=== PATIENT | male | born 1960 | race Caucasian/White ===

== ENCOUNTER → 2024-07-20 | Outpatient (CLI) | payer OTHER ==
--- NOTE | 2024-07-20 17:41 | US ---
EXAMINATION TYPE: US groin LT DATE OF EXAM: 07/20/2024 COMPARISON: NONE CLINICAL INDICATION: Male, 64 years old with history of K40.90 UNIL INGUINAL HERNIA; Patient has been doing a lot of heavy lifting. Patient has felt a bulge in LLQ/left medial groin area x 6 weeks. TECHNIQUE: Scanned LLQ/left medial groin. FINDINGS/IMPRESSION: Possible defect within the left groin/left lower quadrant wall with movement upo n Valsalva maneuver. Area measures 2.0 x 1.1 cm and is medial to the iliac vessels. Raises concern fo r possible inguinal hernia. Appears to contain fat with bowel not excluded. Recommend further evaluat ion with CT abdomen and pelvis with IV contrast. [facility], , 07/20/2024 5:38 PM
== END | disposition home or self-care (01) ==
LOC: RADUSWWP 06:49
PROVIDERS: ATTEND Family Medicine
DX: K40.90 Unilateral inguinal hernia, without obstruction or gangrene, not specified as recurrent (principal)

== ENCOUNTER → 2024-10-11 | Outpatient (CLI) | payer OTHER ==
[2024-10-11 10:52] LABS: Basophils # (A) 0.03 X 10*3/uL (0.00-0.10); Basophils % (A) 0.5 %; Eosinophils % (A) 1.6 %; HCT 49.3 % (39.6-50.0); HGB 15.6 g/dL (13.0-17.0); Lymphocytes # (A) 1.99 X 10*3/uL (0.90-5.00); Lymphocytes % (A) 32.3 %; MCH 29.4 pg (27.0-32.0); MCHC 31.6 g/dL (32.0-37.0); MCV 92.8 FL (80.0-97.0); Mean Platelet Volume 9.4 FL (9.5-12.2); Monocytes # (A) 0.41 X 10*3/uL (0.20-1.00); Monocytes % (A) 6.7 %; NRBC Per 100 WBC 0 X 10*3/uL (0.00-0.01); Neutrophils # (A) 3.61 X 10*3/uL (1.80-7.70); Neutrophils % (A) 58.6 %; Platelet Count 242 X 10*3/uL (140-440); RBC 5.31 X 10*6/uL (4.40-5.60); RDW 12.5 % (11.5-14.5); WBC 6.16 X 10*3/uL (4.50-10.00)
== END | disposition home or self-care (01) ==
LOC: LABWHC1 07:46
PROVIDERS: ATTEND Surgery
DX: Z01.818 Encounter for other preprocedural examination (principal)
CPT/HCPCS: 36415; 85025; 86850; 86900; 86901; 93005

== ENCOUNTER 2024-10-18 07:17 | Day surgery (SDC) | payer OTHER ==
[~2024-10-18 07:17] MED LIST: HYDROmorphone 0.5 MG/0.5 ML SYRINGE IVP PRN; LACTATED RINGERS 1,000 ML IV SCH; LIDOCAINE 1% (10MG/ML) FOR IV START INTRADERMA PRN; MIDAZOLAM 2 MG/2 ML VIAL IV PRN; fentaNYL (PF) 50 MCG/ML 2 ML AMP IVP PRN
--- NOTE | 2024-10-18 07:31 | P.GSHP ---
History of Present Illness H&P Date: 10/18/24 Chief Complaint: Left inguinal hernia 64-year-old male seen in the office in July. Patient with complaints of pain and bulge left groin. No nausea or vomiting. No change in bowel habits. Patient previous smoker. Patient has lost 90 pounds in the last year or so inte ntionally. Past Medical History Past Medical History: Asthma, COPD, GERD/Reflux, Sleep Apnea/CPAP/BIPAP Additional Past Medical History / Comment(s): hx. reflux prior to using CPAP, Lt. inguinal hernia, intentional wt. loss 90 lbs in past year, uses CPAP History of Any Multi-Drug Resistant Organisms: None Reported Past Surgical History: Back Surgery Additional Past Surgical History / Comment(s): laminectomy 1982, Rt. MICHELLE 2011, colonoscopy Past Anesthesia/Blood Transfusion Reactions: No Reported Reaction Smoking Status: Former smoker - Past Family History Brother(s) Additional Family Medical History / Comment(s): irregular heart rhythm Medications and Allergies Home Medications Medication Instructions Recorded Confirmed Type Albuterol Inhaler [Ventolin Hfa 1 - 2 inh INHALATION Q6H PRN 10/13/24 10/13/24 History Inhaler] Albuterol Nebulized [Ventolin 1 dose INHALATION Q6H PRN 10/13/24 10/13/24 History Nebulized] Cholecalciferol [Vitamin D3 (10 10 mcg PO DAILY 10/13/24 10/13/24 History Mcg = 400 Iu)] Docusate [Colace] 100 mg PO BID PRN 10/13/24 10/13/24 History Magnesium Citrate 250 mg PO DAILY 10/13/24 10/13/24 History Allergies Allergy/AdvReac Type Severity Reaction Status Date / Time adhesive AdvReac contact Verified 10/13/24 12:19 dermatitis Surgical - Exam Physical exam: General: Well-developed, well-nourished HEENT: Normocephalic, sclerae nonicteric Abdomen: Nontender, nondistended, moderate sized reducible left inguinal hernia Extremities: No edema Neuro: Alert and oriented Assessment and Plan (1) Left inguinal hernia Narrative/Plan: Will proceed with laparoscopic da Steven assisted repair left inguinal hernia with mesh, possible open, possible bilateral. Risks of bleeding, infection, recurrence, bladder and bowel injury, numbness, nerve injury, conversion to an open procedure were discussed with the patient. The patient understands and wishes to proceed. Current Visit: Yes Status: Acute Code(s): K40.90 - UNIL INGUINAL HERNIA, W/O OBST OR GANGR, NOT SPCF RECUR SNOMED Code(s): 922638122
[2024-10-18] MEDS: ACETAMINOPHEN TAB 500 MG TAB PO PRN (08:22)
[2024-10-18] MEDS: HEPARIN SODIUM,PORCINE 5,000 UNIT/ML 1 ML VIAL SQ PRN (08:23)
[2024-10-18] MEDS: DEXAMETHASONE SOD PHOSPHATE 4 MG/ML 1 ML VIAL IV ONE (08:23)
[2024-10-18] MEDS: TAMSULOSIN 0.4 MG CAP.ER.24H PO STA ×2 (08:23→12:05)
[2024-10-18] MEDS: ONDANSETRON 4 MG/2 ML VIAL IVP ONE (08:23)
[2024-10-18] MEDS: IV FLUID CONTINUATION 1,000 ML IV ONE (08:35)
[2024-10-18] MEDS ORDERED: fentaNYL (PF) 50 MCG/ML 2 ML AMP ONE (08:45)
[2024-10-18] MEDS ORDERED: MIDAZOLAM 2 MG/2 ML VIAL ONE (08:45)
[2024-10-18] MEDS ORDERED: NEOSTIGMINE 1 MG/ML 10 ML VIAL ONE (08:45)
[2024-10-18] MEDS ORDERED: LIDOCAINE 1% INJ 10MG/ML (20 ML MDV) ONE (08:45)
[2024-10-18] MEDS ORDERED: KETAMINE HCL IN 0.9 % NACL 50 MG/5 ML SYRINGE ONE (08:45)
[2024-10-18] MEDS ORDERED: PROPOFOL 10 MG/ML 20 ML VIAL IV ONE (08:45)
[2024-10-18] MEDS ORDERED: ROCURONIUM 10 MG/ML (5 ML VIAL) IV ONE (08:45)
[2024-10-18] MEDS ORDERED: SUCCINYLCHOLINE CHLORIDE 200 MG/10 ML VIAL IV ONE (08:45)
[2024-10-18] MEDS ORDERED: GLYCOPYRROLATE 0.2 MG/ML 2 ML VIAL ONE (08:45)
[2024-10-18] MEDS: BUPIVACAINE (PF) 0.25% 30 ML VIAL SQ ONE (09:10)
[2024-10-18] MEDS: LACTATED RINGERS 1,000 ML IV ONE (10:24)
[2024-10-18 10:39] VITALS: TEMP 98
[2024-10-18 10:40] VITALS: RESP 16
--- NOTE | 2024-10-18 10:41 | P.OP ---
Date of Procedure: 10/18/24 Procedure(s) Performed: PREOPERATIVE DIAGNOSIS: Left inguinal hernia POSTOPERATIVE DIAGNOSIS: Same PROCEDURE: Laparoscopic da Steven assisted repair left inguinal hernia with mesh SURGEON: Dr. Schreiber ANESTHESIA: General EBL: 15 cc OPERATIVE PROCEDURE DETAILS: Patient was placed in the operating table in the s upine position. The patient was placed under general anesthesia. The abdomen was prepped and draped in usual sterile fashion. A small curvilinear supraumbilical incision was made. The fascia was retracted anteriorly with Truman forceps. The Veress needle was inserted. The saline drop test was normal. Insufflation took place to 15 mmHg. An 8 mm trocar was placed into the peritoneal cavity. 2 additional 8 mm trochars were placed in the right upper quadrant and left upper quadrant under visualization. The robotic arms were then brought in and docked into place. The fenestrated bipolar was used in the left arm and the laparoscopic gilmer was utilized in the right arm. A 30 8 mm scope was used in the up position. The peritoneal cavity was inspected. The patient had the start of a very small right inguinal hernia. This was not symptomatic and was not repaired at this time. This only penetrated past the peritoneum by about 1 cm. The patient had a moderate sized indirect hernia on the left-hand side. This was then addressed. The peritoneum was incised in a horizontal fashion cephalad to the internal inguinal ring. Following that careful dissection of the preperitoneal space took place. This took place using both electrocautery, sharp dissection but primarily blunt dissection. Visualization of the pubic tubercle and Wyatt's ligament took place medially. Full dissection took place laterally as well. The hernia sac was fully dissected. There was no visible cord lipoma penetrating through the internal inguinal ring. Once we had adequate space the 16 x 12 cm Progrip mesh was advanced into the preperitoneal space and flattened out appropriately to cover all potential hernia sites. The mesh was sutured medially to the folding edge of Wyatt's ligament. This was performed using a absorbable 3-0 V-Loc suture. The peritoneal defect was then closed using a absorbable 2-0 VLok suture. The hernia sac was incorporated into the peritoneal closure to help prevent future recurrence. The pneumoperitoneum was then evacuated. The skin of all 3 sites was closed using a 4-0 Monocryl stitch. Skin glue was then applied. TYPE OF MESH USED: Extra-large ProGrip LOCATION OF MESH: Preperitoneal FIXATION: Absorbable 3 oh V-Loc PREOPERATIVE DISCUSSION ON SMOKING CESSASTION: Yes PREOPERATIVE DISCUSSION ON MORBID OBESITY: Yes PREOPERATIVE DISCUSSION ON APPROPRIATE USE OF NARCOTIC USE: Yes PREOPERATIVE EDUCATION: Multi Modal, Smoking Cessation and Weight Loss with BMI over 35. DISPOSITION: Stable to recovery room
[2024-10-18] MEDS ORDERED: IBUPROFEN 600 MG TAB PO SCH (12:00)
[2024-10-18 12:35] VITALS: BP 125/78; PULSE 86
[2024-10-18] MEDS ORDERED: ACETAMINOPHEN TAB 325 MG TAB PO SCH (15:00)
== END 2024-10-18 13:00 | disposition home or self-care (01) ==
LOC: OR 07:17
PROVIDERS: ATTEND Surgery
DX: K40.90 Unilateral inguinal hernia, without obstruction or gangrene, not specified as recurrent (principal); J44.89 Other specified chronic obstructive pulmonary disease; K21.9 Gastro-esophageal reflux disease without esophagitis; G47.30 Sleep apnea, unspecified; Z87.891 Personal history of nicotine dependence; Z79.51 Long term (current) use of inhaled steroids; Z79.899 Other long term (current) drug therapy; Z99.89 Dependence on other enabling machines and devices
CPT/HCPCS: 49650; S2900